=== PATIENT | male | born 2000 | race Caucasian/White ===

== ENCOUNTER 2021-05-03 14:35 | Emergency (ER) | payer OTHER, SELFPAY ==
[2021-05-03 15:18] VITALS: BP 131/83; PULSE 78; RESP 16; TEMP 36.8; O2SAT 100
--- NOTE | 2021-05-03 16:01 | ED.GENADULT ---
HPI - General Adult General Chief complaint: Ear Stated complaint: sore throat,fever Source: patient Mode of arrival: ambulatory Limitations: no limitations History of Present Illness HPI narrative: Patient presents for evaluation of sore throat. Symptom onset 04/30/21. He has a history of strep pharyngitis and this feels exactly similar to symptoms experienced with strep in the past. He has also experienced some sinus symptoms. No fever, chills, nausea, vomiting, diarrhea. He has experienced a nonproductive cough without shortness of breath. No recent sick. No history of Covid. He has not received COVID vaccination. He is taking some Mucinex, Aleve, ibuprofen with some improvement in symptoms or after. He is a former smoker. Related Data Allergies Allergy/AdvReac Type Severity Reaction Status Date / Time No Known Allergies Allergy Verified 05/03/21 15:17 Review of Systems Review of Systems: CONSTITUTIONAL: Denies fever, chills, or sweats. EYES: Denies visual changes, redness, or discharge. ENT: Reports sinus congestion and sore throat. Denies rhinorrhea. CARDIOVASCULAR: Denies chest pain, palpitations, or edema. RESPIRATORY: Reports cough. Denies SOB GASTROINTESTINAL: Denies abdominal pain, nausea, vomiting, or diarrhea. GENITOURINARY: Denies dysuria or hematuria. SKIN: Denies rash or itching. MUSCULOSKELETAL: Denies back pain, joint pain, or myalgia. NEUROLOGIC: Denies headache, numbness, dizziness, or weakness. PSYCHIATRIC: Denies anxiety or depression. [facility] Past Medical History Medical History (Updated 05/03/21 @ 16:07 by DAVION Montalvo, ) History of strep pharyngitis Surgical History Surgical History (Updated 05/03/21 @ 16:04 by DAVION Montalvo, ) No pertinent past surgical history Family History Family History Mother No pertinent past medical history Social History Social History Smoking status: Former smoker Substance use: never Living arrangements: with family Gender identity (if verbalized by the patient): Male Sexual Orientation (if Verbalized by the Patient): Straight or Heterosexual Spiritual care concerns: No Exam Narrative: GENERAL: Well-appearing, well-nourished, and in no acute distress. HEAD: Normocephalic, atraumatic. EYES: PERRLA and EOMI. ENT: Nares clear, no rhinorrhea or epistaxis. Mucous membranes moist. Posterior pharyngeal erythema without exudate. Uvula is midline.. Bilateral TMs pearly vogel nonbulging NECK: Supple. No adenopathy or masses. No carotid bruits or JVD CHEST: Clear to auscultation. No respiratory distress. No wheezes rales or rhonchi HEART: Regular rate and rhythm. No murmur heard. Normal peripheral pulses. ABDOMEN: Soft, nontender, nondistended, normal active bowel sounds. EXTREMITIES: Normal range of motion. No edema. SKIN: Warm, dry, no rash. NEURO: No focal deficits. Alert and oriented x3. PSYCH: Normal mood and affect. Course Course Emergency Course: This is a 20-year-old male with a history of recurrent strep pharyngitis that presented with complaints of sore throat. Strep and COVID were negative. His symptoms are consistent with those experienced in the past with strep. Therefore, will treat with abx. Increase fluid intake. Follow up outpatient for further evaluation and treatment and return for worsening symptoms. Pt in agreement with plan of care. Level of Care: Express Care Visit Vital Signs Vital signs: Vital Signs Temperature 36.8 C 05/03/21 15:18 Pulse Rate 78 05/03/21 15:18 Respiratory Rate 16 05/03/21 15:18 Blood Pressure 131/83 05/03/21 15:18 Pulse Oximetry 100 05/03/21 15:18 Temperature 36.8 C 05/03/21 15:18 Pulse Rate 78 05/03/21 15:18 Respiratory Rate 16 05/03/21 15:18 Blood Pressure 131/83 05/03/21 15:18 Pulse Oximetry 100 05/03/21 15:18
== END 2021-05-03 16:18 | disposition home or self-care (01) ==
PROVIDERS: Emergency Provider Nurse Practitioner; PCP Family Medicine Adolescent Medicine
DX: J02.9 Acute pharyngitis, unspecified (principal); Z20.822 Contact with and (suspected) exposure to COVID-19; Z87.891 Personal history of nicotine dependence
CPT/HCPCS: 87081; 87426; 87880; 99213; C9803; G0463